=== PATIENT | male | born 1990 | race Caucasian/White ===

== ENCOUNTER 2020-04-08 07:38 | Emergency (ER) | payer OTHER ==
[~2020-04-08] VITALS: Ht 177.8 cm; Wt 111.0 kg
--- NOTE | 2020-04-08 08:15 | NUR ---
assumed care of pt. pt here for increasing RLQ pain today. pt reports that he has been having this pain for over 2 months and that he has been evaluated by his primary MD as well as GI. pt reports that he was having diarrhea yesterday but not today and that he is having nausea today but no vomiting. denies melena. no urinary c/o. pt reports that he also has reflux
--- NOTE | 2020-04-08 08:45 | NUR ---
pt is aware that urine sample needed.
[2020-04-08 08:57] LABS: BASOPHILS # (AUTO) 0.09 x10^3/uL (0-0.1); BASOPHILS % (AUTO) 1 % (0-1); EOSINOPHILS # (AUTO) 0.09 x10^3/uL (0-0.4); EOSINOPHILS % (AUTO) 1 % (1-7); LYMPHOCYTES # (AUTO) 1.77 x10^3/uL (1-3.4); LYMPHOCYTES % (AUTO) 19 % (22-44); MD NO; MEAN CORPUSCULAR HEMOGLOBIN 29.8 pg (27.5-34.5); MEAN CORPUSCULAR HGB CONC 33.5 g/dL (33.2-36.2); MEAN CORPUSCULAR VOLUME 88.9 fL (81-97); MEAN PLATELET VOLUME 7.5 fL (7.4-10.4); MONOCYTES # (AUTO) 0.54 x10^3/uL (0.2-0.8); MONOCYTES % (AUTO) 6 % (2-9); NEUTROPHILS # (AUTO) 6.65 x10^3/uL (1.8-6.8); NEUTROPHILS % (AUTO) 73 % (42-75); PLATELET COUNT 307 x10^3/uL (130-400); RED BLOOD COUNT 5.01 x10^6/uL (4.38-5.82); RED CELL DISTRIBUTION WIDTH 12.1 % (9.4-14.8)
[2020-04-08] MEDS ORDERED: HYDROcodone/APAP 5/325 TABLET PO ONE (09:00)
[2020-04-08] MEDS ORDERED: ONDANSETRON ODT 8 MG PO ONE (09:00)
[2020-04-08 09:07] LABS: ALANINE AMINOTRANSFERASE 52 U/L (12-78); ALBUMIN 3.6 g/dL (3.4-5.0); ANION GAP 7 mmol/L (5-15); CALCIUM 9.2 mg/dL (8.5-10.1); CHLORIDE 113 mmol/L (98-107); CREATININE 0.78 mg/dL (0.7-1.3)
[2020-04-08 09:10] LABS: ALKALINE PHOSPHATASE 86 U/L (45-117); BILIRUBIN,TOTAL 0.5 mg/dL (0.2-1.0); TOTAL PROTEIN 7.3 g/dL (6.4-8.2)
--- NOTE | 2020-04-08 09:25 | NUR ---
pt to be medicated. pt made aware that he cannot drive after [place]. pt reports that his fiance will be able to pick him up after D/C
[2020-04-08] MEDS ORDERED: ONDANSETRON ODT 8 MG ONE (09:28)
[2020-04-08] MEDS ORDERED: HYDROcodone/APAP 5/325 TABLET ONE (09:29)
--- NOTE | 2020-04-08 10:16 | NUR ---
pt reports that his pain is decreased to 4/10 from 8/10 and now denies nausea. no vomiting since [employer]
[2020-04-08 11:08] VITALS: BP 128/94
== END 2020-04-08 11:13 | disposition home or self-care (01) ==
LOC: ED 08:34
DX: R10.11 Right upper quadrant pain (principal); R11.0 Nausea; R19.7 Diarrhea, unspecified; K21.9 Gastro-esophageal reflux disease without esophagitis; J45.909 Unspecified asthma, uncomplicated; F17.210 Nicotine dependence, cigarettes, uncomplicated; Z90.49 Acquired absence of other specified parts of digestive tract; Z87.11 Personal history of peptic ulcer disease
CPT/HCPCS: 36415; 76700; 80053; 83690; 85025; 99285; Q0162